=== PATIENT | male | born 1945 | race Two or more races ===

== ENCOUNTER 2023-12-31 10:18 | Emergency (ER) | payer MEDICAID ==
[~2023-12-31] VITALS: Ht 170.2 cm; Wt 72.6 kg
[2023-12-31] MEDS ORDERED: ACETAMINOPHEN ES 500 MG TABLET ONE (10:57)
[2023-12-31] MEDS ORDERED: IBUPROFEN 400 MG TABLET ONE (10:57)
[2023-12-31] MEDS: IV NS 0.9% 1,000 ML BAG IV ONE (11:03)
[2023-12-31] MEDS: IBUPROFEN 400 MG TABLET PO ONE (11:03)
[2023-12-31] MEDS: ACETAMINOPHEN ES 500 MG TABLET PO ONE (11:03)
[2023-12-31 11:10] LABS: BASOPHILS % (AUTO) 0.3 % (0.0-2.0); EOSINOPHILS % (AUTO) 0.2 % (0.0-6.0); HEMATOCRIT 42 % (39-51); HEMOGLOBIN 14.4 g/dL (13.5-17.5); LYMPHOCYTES # (AUTO) 0.7 K/uL (0.8-4.8); LYMPHOCYTES % (AUTO) 6.9 % (20.0-44.0); MEAN CORPUSCULAR HEMOGLOBIN 32 PG (26.0-33.0); MEAN CORPUSCULAR HGB CONC 34 g/dl (31.0-36.0); MEAN CORPUSCULAR VOLUME 92 fL (80-96); MONOCYTES # (AUTO) 0.6 K/uL (0.1-1.30); MONOCYTES % (AUTO) 5.6 % (2.0-12.0); NEUTROPHILS # (AUTO) 8.9 K/uL (1.8-8.9); PLATELET COUNT (AUTO) 156 K/uL (150-450); RED BLOOD CELL COUNT(AUTO) 4.55 MIL/uL (4.5-6.0); RED CELL DISTRIBUTION WIDTH 13.2 % (11.5-15.0); WHITE BLOOD COUNT (AUTO) 10.2 K/uL (4.3-11.0)
[2023-12-31 11:33] LABS: CALCIUM, SERUM 8.7 mg/dL (8.5-10.1); CARBON DIOXIDE 27 mmol/L (21-32); CHLORIDE 102 mmol/L (98-107); CREATININE 1.1 mg/dL (0.6-1.3); GLUCOSE 114 mg/dL (74-106); POTASSIUM 4.3 mmol/L (3.5-5.1); SODIUM SERUM 137 mmol/L (136-145); UREA NITROGEN, BLOOD 16 mg/dL (7-18)
[2023-12-31 12:22] LABS: NT-PRO BNP 154 pg/mL (0-125)
[2023-12-31] MEDS ORDERED: ACET-2605 PO (13:19)
[2023-12-31 14:34] VITALS: BP 128/72; TEMP 99.4; O2SAT 98
== END 2023-12-31 14:35 | disposition home or self-care (01) ==
LOC: ER 10:52
DX: R06.02 Shortness of breath (principal); I10 Essential (primary) hypertension; K21.9 Gastro-esophageal reflux disease without esophagitis; R11.2 Nausea with vomiting, unspecified; R94.31 Abnormal electrocardiogram [ECG] [EKG]; R50.9 Fever, unspecified; Z88.8 Allergy status to other drugs, medicaments and biological substances; Z20.822 Contact with and (suspected) exposure to COVID-19
CPT/HCPCS: 99285; 96360; 71045; 87426; 93005; 87804 ×2; 85025; 80048; 36415; 84484; 83880; J7030